=== PATIENT | male | born 1955 | race Caucasian/White ===

== ENCOUNTER 2020-10-02 08:43 | Inpatient (IN) ==
[2020-10-02 10:02] LABS: Basophils % 0.4 % (0.0-0.8); Immature Granulocytes % 8.9 %; Immature Granulocytes Absolute 0.43 #; Lymphocytes # 0.1 10*3/uL (1.4-4.0); Lymphocytes % 2.7 % (21.2-54.2); Mean Corpuscular HGB Conc 32.4 GM/DL (32-36); Mean Corpuscular Volume 96.2 FL (87-102); Mean Platelet Volume 11.8 FL (9.6-12.0); NRBC # 0.46 10*3/uL; Red Blood Count 1.86 MC/CUMM (3.8-5.5); Red Cell Distribution Width 18.6 % (9.3-17.3); White Blood Count 4.8 T/CUMM (4-12)
[2020-10-02 10:05] LABS: Hemoglobin 5.8 GM/DL (14.0-18.0)
[2020-10-02 10:06] LABS: Hematocrit 17.9 VOL% (42.0-52.0); Platelet Count 39 T/CUMM (130-400)
[2020-10-02] MEDS ORDERED: SODIUM CHLORIDE 0.9% 1,000 ML IV PRN (10:16)
[2020-10-02 10:22] LABS: Band Neutrophils 4 % (0-10); Hypochromasia 2+; Lymphocytes 7 % (20-55); Microcytosis 1+; Nucleated Red Blood Cells 6 (0-5); Platelet Estimate Decreased; Segmented Neutrophils 85 % (50-85); Total Cells Counted 100
[2020-10-02 10:24] LABS: Alanine Aminotransferase 20 U/L (16-61); Albumin 2.3 G/DL (3.4-5.0); Alkaline Phosphatase 235 U/L (45-117); Aspartate Amino Transferase 36 U/L (0-37); Blood Urea Nitrogen 20 MG/DL (7-18); Carbon Dioxide 22 MMOL/L (21-32); Estimated Glom Filtration Rate 108 ML/MIN; Glucose 110 MG/DL (74-106); Osmolality,Calculated 271.2 MOS/KG (273-304); Potassium 3.6 MMOL/L (3.5-5.1); Sodium 134 MMOL/L (136-145); Total Protein 5.4 G/DL (6.4-8.3)
[2020-10-02] MEDS ORDERED: SODIUM CHLORIDE 0.9% 2,300 ML IV ONE (10:27)
[2020-10-02 10:43] LABS: Protein,Urine 30 MG/DL; Urine Appearance Cloudy (Clear); Urine Color Yellow (Yellow)
[2020-10-02 10:44] LABS: Bilirubin,Urine Negative (Negative); Blood, Urine Trace mg/dL (Negative); Glucose,Urine (UA) Negative (Negative); Ketones,Urine Negative (Negative); Nitrite,Urine Positive (Negative); Squamous Epithelial Cell,Urine Few /HPF (0-10)
[2020-10-02 10:45] LABS: Bacteria,Urine Moderate /HPF (Few); Mucus,Urine Slight /LPF (Occasional)
[2020-10-02] MEDS ORDERED: PIPERACILLIN/TAZOBACTAM 3,375 MG VIAL IV ONE (11:18)
[2020-10-02] MEDS: PIPERACILLIN/TAZOBACTAM 3,375 MG in SODIUM CHLORIDE 0.9% 100 ML IV SCH ×2 (11:35→23:07)
[2020-10-02] MEDS ORDERED: ONDANSETRON 4 MG/2 ML VIAL IV PRN (13:00)
[2020-10-02] MEDS ORDERED: DEXTROSE 50% 25 GM/50 ML VIAL IV PRN (13:00)
[2020-10-02] MEDS ORDERED: GLUCAGON 1 MG VIAL IM PRN (13:00)
[2020-10-02 13:44] LABS: Thyroid Stimulating Hormone 3.07 uIU/ml (0.358-3.74)
[2020-10-02] MEDS: VANCOMYCIN INJ 1,250 MG in SODIUM CHLORIDE 0.9% 250 ML IV SCH (14:05)
[2020-10-02] MEDS: methylPREDNISolone SOD SUC 40 MG/1 ML VIAL IV SCH (16:53)
[2020-10-02] MEDS: PANTOPRAZOLE 40 MG VIAL IV SCH (23:07)
[2020-10-03] MEDS: VANCOMYCIN INJ 1,250 MG in SODIUM CHLORIDE 0.9% 250 ML IV SCH ×2 (03:35→16:46)
[2020-10-03] MEDS: methylPREDNISolone SOD SUC 40 MG/1 ML VIAL IV SCH ×2 (04:09→17:05)
[2020-10-03 06:10] LABS: Basophils % 0.4 % (0.0-0.8); Hemoglobin 6.6 GM/DL (14.0-18.0); Immature Granulocytes % 10.2 %; Immature Granulocytes Absolute 0.54 #; Lymphocytes # 0.3 10*3/uL (1.4-4.0); Lymphocytes % 5.9 % (21.2-54.2); Mean Corpuscular HGB Conc 31.4 GM/DL (32-36); Mean Corpuscular Volume 98.1 FL (87-102); Mean Platelet Volume 11.8 FL (9.6-12.0); Monocytes % 9.5 % (1.7-12.7); NRBC # 0.25 10*3/uL; Platelet Count 61 T/CUMM (130-400); Red Blood Count 2.14 MC/CUMM (3.8-5.5); Red Cell Distribution Width 18.3 % (9.3-17.3); White Blood Count 5.3 T/CUMM (4-12)
[2020-10-03 06:27] LABS: Calcium 7.7 MG/DL (8.5-10.1); Osmolality,Calculated 276.8 MOS/KG (273-304)
[2020-10-03 07:14] LABS: Band Neutrophils 9 % (0-10); Eosinophils 1 % (0-10); Hypochromasia 2+; Lymphocytes 7 % (20-55); Metamyelocytes 6 %; Myelocytes 3 %; Platelet Estimate Decreased; Segmented Neutrophils 64 % (50-85); Total Cells Counted 100
[2020-10-03] MEDS ORDERED: SODIUM CHLORIDE 0.9% 1,000 ML IV PRN (08:17)
[2020-10-03] MEDS ORDERED: MAGNESIUM SULF RIDER 2 GM in PREMIX 1 EACH IV PRN (08:21)
[2020-10-03] MEDS ORDERED: MAGNESIUM SULF RIDER 4 GM in PREMIX 1 EACH IV PRN (08:21)
[2020-10-03] MEDS: PANTOPRAZOLE 40 MG VIAL IV SCH ×2 (10:19→20:13)
[2020-10-03] MEDS: PIPERACILLIN/TAZOBACTAM 3,375 MG in SODIUM CHLORIDE 0.9% 100 ML IV SCH ×3 (10:21→15:37)
[2020-10-03 18:56] LABS: Hematocrit 25.7 VOL% (42.0-52.0); Hemoglobin 8.5 GM/DL (14.0-18.0)
[2020-10-04 01:08] LABS: Hemoglobin 9.1 GM/DL (14.0-18.0)
[2020-10-04] MEDS: methylPREDNISolone SOD SUC 40 MG/1 ML VIAL IV SCH (04:22)
[2020-10-04] MEDS: VANCOMYCIN INJ 1,250 MG in SODIUM CHLORIDE 0.9% 250 ML IV SCH (04:24)
[2020-10-04] MEDS ORDERED: SODIUM CHLORIDE 0.9% 1,000 ML IV SCH (07:03)
[2020-10-04] MEDS ORDERED: LIDOCAINE 2% 5 ML VIAL ONE (07:13)
[2020-10-04] MEDS ORDERED: propofoL 200 MG/20 ML VIAL IV ONE (07:13)
[2020-10-04 08:47] LABS: Basophils # 0.1 10*3/uL (0.0-0.2); Basophils % 0.5 % (0.0-0.8); Hematocrit 29.5 VOL% (42.0-52.0); Hemoglobin 9.6 GM/DL (14.0-18.0); Immature Granulocytes % 6.8 %; Immature Granulocytes Absolute 0.64 #; Lymphocytes # 0.1 10*3/uL (1.4-4.0); Mean Corpuscular HGB Conc 32.5 GM/DL (32-36); Mean Corpuscular Volume 94.2 FL (87-102); Mean Platelet Volume 11.2 FL (9.6-12.0); Monocytes % 12.1 % (1.7-12.7); NRBC # 0.68 10*3/uL; Neutrophils % 79.6 % (38.7-73.9); Platelet Count 55 T/CUMM (130-400); Red Blood Count 3.13 MC/CUMM (3.8-5.5); Red Cell Distribution Width 18.9 % (9.3-17.3); White Blood Count 9.5 T/CUMM (4-12)
[2020-10-04 09:07] LABS: Band Neutrophils 24 % (0-10); Eosinophils 1 % (0-10); Metamyelocytes 2 %; Nucleated Red Blood Cells 14 (0-5); Platelet Estimate Decreased; Segmented Neutrophils 60 % (50-85); Total Cells Counted 100
[2020-10-04 09:08] LABS: Anisocytosis 2+; Macrocytosis 1+; Polychromasia Slight
[2020-10-04] MEDS: PANTOPRAZOLE 40 MG VIAL IV SCH (10:15)
[2020-10-04] MEDS: PIPERACILLIN/TAZOBACTAM 3,375 MG in SODIUM CHLORIDE 0.9% 100 ML IV SCH ×2 (10:15)
[2020-10-04 15:29] VITALS: BP 107/71
== END 2020-10-04 17:31 | disposition home or self-care (01) | DRG 375 ==
LOC: N.ED 08:43 → N.EDINP 11:15 → SUATTDRO 11:15 → N.4E 16:15
PROVIDERS: ADMIT Emergency Medicine; ATTEND Internal Medicine

== ENCOUNTER 2020-11-04 07:37 | Inpatient (IN) ==
[2020-11-04] MEDS ORDERED: ACETAMINOPHEN 500 MG TABLET PO STA (08:07)
[2020-11-04] MEDS ORDERED: SODIUM CHLORIDE 0.9% 1,000 ML IV STA (08:07)
[2020-11-04 08:49] LABS: Basophils % 0.4 % (0.0-0.8); Hematocrit 22.5 VOL% (42.0-52.0); Hemoglobin 7.2 GM/DL (14.0-18.0); Lymphocytes # 1.2 10*3/uL (1.4-4.0); Lymphocytes % 14.5 % (21.2-54.2); Mean Corpuscular Volume 102.7 FL (87-102); NRBC # 0.12 10*3/uL; Neutrophils % 70.1 % (38.7-73.9); Red Blood Count 2.19 MC/CUMM (3.8-5.5); Red Cell Distribution Width 23.8 % (9.3-17.3); White Blood Count 8.4 T/CUMM (4-12)
[2020-11-04 08:53] LABS: Platelet Count 14 T/CUMM (130-400)
[2020-11-04 09:07] LABS: Bilirubin,Urine Negative (Negative); Blood, Urine Small mg/dL (Negative); Glucose,Urine (UA) Negative (Negative); Ketones,Urine Negative (Negative); Mucus,Urine Many /LPF (Occasional); Nitrite,Urine Negative (Negative); Protein,Urine 100 MG/DL; RBC,Urine 4 /HPF (0-4); Squamous Epithelial Cell,Urine Occasional /HPF (0-10); Urine Appearance CLEAR (Clear); Urine Color Amber (Yellow); Urine Specific Gravity 1.021 (1.001-1.035); WBC,Urine 1 /HPF (0-6)
[2020-11-04 09:10] LABS: Albumin 2.2 G/DL (3.4-5.0); Bilirubin,Total 1.3 MG/DL (0.2-1.0); Calcium 8.3 MG/DL (8.5-10.1); Osmolality,Calculated 272.8 MOS/KG (273-304); Potassium 3.4 MMOL/L (3.5-5.1); Total Protein 6.4 G/DL (5.0-7.5)
[2020-11-04 09:33] LABS: Band Neutrophils 12 % (0-10); Lymphocytes 13 % (20-55); Nucleated Red Blood Cells 1 (0-5); Segmented Neutrophils 56 % (50-85); Total Cells Counted 100
[2020-11-04 09:34] LABS: Hypochromasia 2+; Polychromasia 1+
[2020-11-04 09:35] LABS: Macrocytosis 2+
[2020-11-04 09:36] LABS: Atypical Lymphocytes Few; Platelet Estimate Decreased
[2020-11-04] MEDS ORDERED: DOCUSATE SODIUM 100 MG CAPSULE PO PRN (11:59)
[2020-11-04] MEDS ORDERED: hydrALAZINE 20 MG/1 ML VIAL IV PRN (11:59)
[2020-11-04] MEDS ORDERED: ACETAMINOPHEN 325 MG TABLET PO PRN (11:59)
[2020-11-04] MEDS ORDERED: DEXTROSE 50% 25 GM/50 ML VIAL IV PRN ×2 (11:59→14:44)
[2020-11-04] MEDS ORDERED: GLUCAGON 1 MG VIAL IM PRN (11:59)
[2020-11-04] MEDS ORDERED: ONDANSETRON 4 MG/2 ML VIAL IV PRN (11:59)
[2020-11-04] MEDS ORDERED: guaiFENesin/DM ER 600-30 MG TABLET PO PRN (11:59)
[2020-11-04] MEDS ORDERED: SODIUM CHLORIDE 0.9% 1,000 ML IV PRN ×2 (12:03→17:22)
[2020-11-04] MEDS: SODIUM CHLORIDE 0.9% 1,000 ML IV SCH (14:10)
[2020-11-04] MEDS: MEROPENEM 500 MG in SODIUM CHLORIDE 0.9% 100 ML IV SCH ×2 (14:14→21:25)
[2020-11-04] MEDS ORDERED: MAGNESIUM SULF RIDER 4 GM in PREMIX 1 EACH IV PRN (14:29)
[2020-11-04] MEDS ORDERED: MAGNESIUM SULF RIDER 2 GM in PREMIX 1 EACH IV PRN (14:29)
[2020-11-04] MEDS: INSULIN REGULAR 100 UNIT/ML SUBCUT SCH (16:16)
[2020-11-04] MEDS ORDERED: MAGNESIUM SULF RIDER 2 GM in PREMIX 1 EACH IV ONE (17:19)
[2020-11-04] MEDS ORDERED: POTASSIUM CHLORIDE 20 MEQ TABLET PO ONE (17:20)
[2020-11-04] MEDS ORDERED: VANCOMYCIN INJ 1,000 MG in SODIUM CHLORIDE 0.9% 250 ML IV ONE (17:25)
[2020-11-04 18:11] LABS: PT Patient Result 11.1 SECS (9.8-11.9)
[2020-11-04] MEDS: SIMVASTATIN 10 MG TABLET PO SCH (21:24)
[2020-11-04] MEDS: PANTOPRAZOLE 40 MG TABLET PO SCH (21:24)
[2020-11-04] MEDS: GABAPENTIN 300 MG CAPSULE PO SCH (21:24)
[2020-11-05] MEDS: MEROPENEM 500 MG in SODIUM CHLORIDE 0.9% 100 ML IV SCH ×4 (03:27→21:21)
[2020-11-05 05:43] LABS: Basophils % 0.3 % (0.0-0.8); Hematocrit 19.8 VOL% (42.0-52.0); Immature Granulocytes % 4.5 %; Immature Granulocytes Absolute 0.28 #; Lymphocytes # 0.7 10*3/uL (1.4-4.0); Lymphocytes % 10.9 % (21.2-54.2); Mean Corpuscular HGB Conc 31.8 GM/DL (32-36); Mean Corpuscular Volume 105.3 FL (87-102); Mean Platelet Volume 11.3 FL (9.6-12.0); Monocytes % 12.2 % (1.7-12.7); NRBC # 0.09 10*3/uL; Neutrophils % 72.1 % (38.7-73.9); Platelet Count 43 T/CUMM (130-400); Red Blood Count 1.88 MC/CUMM (3.8-5.5); White Blood Count 6.2 T/CUMM (4-12)
[2020-11-05 05:56] LABS: Hemoglobin 6.3 GM/DL (14.0-18.0)
[2020-11-05 06:03] LABS: Calcium 7.6 MG/DL (8.5-10.1); Potassium 3.4 MMOL/L (3.5-5.1)
[2020-11-05 06:04] LABS: Atypical Lymphocytes Few; Band Neutrophils 1 % (0-10); Lymphocytes 15 % (20-55); Nucleated Red Blood Cells 2 (0-5); Platelet Estimate Decreased; Segmented Neutrophils 68 % (50-85); Total Cells Counted 100
[2020-11-05 06:05] LABS: Hypochromasia 2+; Macrocytosis Slight; Ovalocytes Slight
[2020-11-05] MEDS: INSULIN REGULAR 100 UNIT/ML SUBCUT SCH ×3 (08:29→16:49)
[2020-11-05] MEDS ORDERED: SODIUM CHLORIDE 0.9% 1,000 ML IV PRN (08:29)
[2020-11-05] MEDS: PANTOPRAZOLE 40 MG TABLET PO SCH ×2 (08:33→21:21)
[2020-11-05] MEDS: GABAPENTIN 300 MG CAPSULE PO SCH ×2 (08:33→21:21)
[2020-11-05] MEDS ORDERED: PANTOPRAZOLE 40 MG TABLET PO SCH (09:00)
[2020-11-05] MEDS: SODIUM CHLORIDE 0.9% 1,000 ML IV SCH ×2 (18:08→21:21)
[2020-11-05] MEDS ORDERED: POTASSIUM CHLORIDE 20 MEQ/15 ML UDCUP PO ONE (18:32)
[2020-11-05] MEDS: SIMVASTATIN 10 MG TABLET PO SCH (21:21)
[2020-11-06] MEDS: MEROPENEM 500 MG in SODIUM CHLORIDE 0.9% 100 ML IV SCH ×2 (03:53→08:23)
[2020-11-06 05:45] LABS: Basophils % 0.5 % (0.0-0.8); Eosinophils % 0.2 % (0.00-10.9); Hematocrit 26.3 VOL% (42.0-52.0); Immature Granulocytes % 4.6 %; Lymphocytes # 0.6 10*3/uL (1.4-4.0); Lymphocytes % 9.9 % (21.2-54.2); Mean Corpuscular HGB Conc 32.7 GM/DL (32-36); Mean Corpuscular Volume 99.2 FL (87-102); Monocytes % 11.1 % (1.7-12.7); NRBC # 0.12 10*3/uL; Neutrophils % 73.7 % (38.7-73.9); Red Cell Distribution Width 21.6 % (9.3-17.3); White Blood Count 6.5 T/CUMM (4-12)
[2020-11-06 05:46] LABS: Hemoglobin 8.6 GM/DL (14.0-18.0); Red Blood Count 2.65 MC/CUMM (3.8-5.5)
[2020-11-06 05:48] LABS: Platelet Count 27 T/CUMM (130-400)
[2020-11-06 06:07] LABS: Band Neutrophils 2 % (0-10); Lymphocytes 6 % (20-55); Nucleated Red Blood Cells 2 (0-5); Platelet Estimate Decreased; Segmented Neutrophils 80 % (50-85); Total Cells Counted 100
[2020-11-06 06:08] LABS: Atypical Lymphocytes Few; Hypochromasia 1+; Macrocytosis Slight; Ovalocytes Slight; Polychromasia Slight
[2020-11-06 06:09] LABS: Calcium 8.4 MG/DL (8.5-10.1); Osmolality,Calculated 267.1 MOS/KG (273-304); Potassium 3.6 MMOL/L (3.5-5.1)
[2020-11-06] MEDS: INSULIN REGULAR 100 UNIT/ML SUBCUT SCH ×2 (07:48→13:08)
[2020-11-06] MEDS: GABAPENTIN 300 MG CAPSULE PO SCH (08:22)
[2020-11-06] MEDS: PANTOPRAZOLE 40 MG TABLET PO SCH (08:23)
[2020-11-06 12:33] VITALS: BP 112/73
[2020-11-06] MEDS ORDERED: HEPARIN LOCK FLUSH 500 UNIT/5 ML SYRINGE IV ONE (13:52)
[2020-11-06] MEDS ORDERED: AMOXICILLIN/CLAV 500 MG TABLET PO SCH (21:00)
== END 2020-11-06 14:37 | disposition home or self-care (01) | DRG 813 ==
LOC: N.ED 07:37 → N.EDINP 11:41 → N.4E 12:56
PROVIDERS: ADMIT Internal Medicine; ATTEND Internal Medicine

== ENCOUNTER 2020-12-02 10:11 | Inpatient (IN) ==
[2020-12-02] MEDS ORDERED: ONDANSETRON 4 MG/2 ML VIAL IV STA (11:24)
[2020-12-02] MEDS ORDERED: SODIUM CHLORIDE 0.9% 1,000 ML IV STA (11:24)
[2020-12-02 11:31] LABS: Basophils % 0.2 % (0.0-0.8); Hematocrit 20.6 VOL% (42.0-52.0); Hemoglobin 6.7 GM/DL (14.0-18.0); Immature Granulocytes % 6.2 %; Immature Granulocytes Absolute 0.79 #; Lymphocytes # 1.1 10*3/uL (1.4-4.0); Lymphocytes % 8.2 % (21.2-54.2); Mean Corpuscular HGB Conc 32.5 GM/DL (32-36); Mean Corpuscular Volume 107.9 FL (87-102); Monocytes % 17.9 % (1.7-12.7); NRBC # 0.73 10*3/uL; Neutrophils % 67.5 % (38.7-73.9); Red Blood Count 1.91 MC/CUMM (3.8-5.5); Red Cell Distribution Width 24.8 % (9.3-17.3); White Blood Count 12.8 T/CUMM (4-12)
[2020-12-02 11:37] LABS: Platelet Count 13 T/CUMM (130-400)
[2020-12-02 11:46] LABS: Albumin 2.1 G/DL (3.4-5.0); Bilirubin,Total 1.2 MG/DL (0.2-1.0); Osmolality,Calculated 268.4 MOS/KG (273-304); Potassium 4.3 MMOL/L (3.5-5.1); Total Protein 5.9 G/DL (6.4-8.2)
[2020-12-02 11:49] LABS: Calcium 8.5 MG/DL (8.5-10.1)
[2020-12-02 11:51] LABS: Atypical Lymphocytes Few; Band Neutrophils 2 % (0-10); Hypochromasia 2+; Lymphocytes 7 % (20-55); Microcytosis 1+; Nucleated Red Blood Cells 2 (0-5); Platelet Estimate Decreased; Segmented Neutrophils 76 % (50-85); Total Cells Counted 100
[2020-12-02] MEDS ORDERED: SODIUM CHLORIDE 0.9% 1,000 ML IV PRN (12:01)
[2020-12-02] MEDS ORDERED: guaiFENesin/DM ER 600-30 MG TABLET PO PRN (14:41)
[2020-12-02] MEDS ORDERED: GLUCAGON 1 MG VIAL IM PRN (14:41)
[2020-12-02] MEDS ORDERED: DEXTROSE 50% 25 GM/50 ML VIAL IV PRN (14:41)
[2020-12-02 16:19] LABS: INR 1.1; PT Patient Result 11.4 SECS (9.8-11.9); Partial Thromboplastin Time 29.6 SECS (23.9-33.8)
[2020-12-02] MEDS: INSULIN LISPRO 100 UNIT/ML SUBCUT SCH ×2 (18:21→21:49)
[2020-12-02] MEDS: SODIUM CHLORIDE 0.9% 1,000 ML IV SCH (18:50)
[2020-12-02] MEDS: PANTOPRAZOLE 40 MG VIAL IV SCH (21:56)
[2020-12-03] MEDS: SODIUM CHLORIDE 0.9% 1,000 ML IV SCH ×2 (04:32→14:33)
[2020-12-03 05:41] LABS: Basophils % 0.4 % (0.0-0.8); Immature Granulocytes % 5.8 %; Immature Granulocytes Absolute 0.66 #; Lymphocytes # 0.9 10*3/uL (1.4-4.0); Mean Corpuscular HGB Conc 33.3 GM/DL (32-36); Mean Corpuscular Volume 99.5 FL (87-102); Mean Platelet Volume 10.1 FL (9.6-12.0); Monocytes % 18.3 % (1.7-12.7); NRBC # 0.77 10*3/uL; Neutrophils % 67.5 % (38.7-73.9); Platelet Count 61 T/CUMM (130-400); Red Blood Count 2.11 MC/CUMM (3.8-5.5); Red Cell Distribution Width 24.5 % (9.3-17.3); White Blood Count 11.4 T/CUMM (4-12)
[2020-12-03 06:01] LABS: Bilirubin,Total 2.3 MG/DL (0.2-1.0); Calcium 8.4 MG/DL (8.5-10.1); Osmolality,Calculated 263.5 MOS/KG (273-304); Potassium 3.8 MMOL/L (3.5-5.1); Total Protein 5.5 G/DL (6.4-8.2)
[2020-12-03 06:19] LABS: Anisocytosis 2+; Atypical Lymphocytes Few; Band Neutrophils 3 % (0-10); Hypochromasia 2+; Lymphocytes 6 % (20-55); Macrocytosis 2+; Metamyelocytes 2 %; Myelocytes 1 %; Nucleated Red Blood Cells 13 (0-5); Platelet Estimate Decreased; Polychromasia 2+; Promyelocytes 3 %; Segmented Neutrophils 65 % (50-85); Total Cells Counted 101
[2020-12-03] MEDS: INSULIN LISPRO 100 UNIT/ML SUBCUT SCH ×4 (07:33→21:32)
[2020-12-03] MEDS ORDERED: ONDANSETRON 4 MG/2 ML VIAL IV PRN (07:36)
[2020-12-03] MEDS ORDERED: MAGNESIUM SULF RIDER 2 GM in PREMIX 1 EACH IV ONE (08:00)
[2020-12-03] MEDS: PANTOPRAZOLE 40 MG VIAL IV SCH ×2 (08:20→21:34)
[2020-12-03] MEDS: GABAPENTIN 300 MG CAPSULE PO SCH ×2 (08:20→21:33)
[2020-12-03 17:32] LABS: Bilirubin,Urine Negative (Negative); Blood, Urine Negative (Negative); Glucose,Urine (UA) Negative (Negative); Ketones,Urine Negative (Negative); Mucus,Urine Occasional /LPF (Occasional); Nitrite,Urine Negative (Negative); Protein,Urine Negative; RBC,Urine 1 /HPF (0-4); Squamous Epithelial Cell,Urine Occasional /HPF (0-10); Urine Appearance CLEAR (Clear); Urine Color Yellow (Yellow); Urine Specific Gravity 1.011 (1.001-1.035); WBC,Urine 1 /HPF (0-6)
[2020-12-03] MEDS: SIMVASTATIN 10 MG TABLET PO SCH (21:33)
[2020-12-04 05:52] LABS: Basophils % 0.3 % (0.0-0.8); Hematocrit 26.3 VOL% (42.0-52.0); Immature Granulocytes Absolute 0.52 #; Lymphocytes # 0.6 10*3/uL (1.4-4.0); Lymphocytes % 6.1 % (21.2-54.2); Mean Corpuscular HGB Conc 33.5 GM/DL (32-36); Mean Corpuscular Volume 95.3 FL (87-102); Mean Platelet Volume 10.3 FL (9.6-12.0); Monocytes % 17.8 % (1.7-12.7); NRBC # 0.82 10*3/uL; Neutrophils % 70.8 % (38.7-73.9); Red Cell Distribution Width 21.6 % (9.3-17.3); White Blood Count 10.5 T/CUMM (4-12)
[2020-12-04 06:07] LABS: Hemoglobin 8.8 GM/DL (14.0-18.0); Red Blood Count 2.76 MC/CUMM (3.8-5.5)
[2020-12-04 06:08] LABS: Platelet Count 39 T/CUMM (130-400)
[2020-12-04 06:09] LABS: Calcium 8.5 MG/DL (8.5-10.1); Osmolality,Calculated 260.7 MOS/KG (273-304); Potassium 4.1 MMOL/L (3.5-5.1)
[2020-12-04 06:21] LABS: Band Neutrophils 9 % (0-10); Hypochromasia 1+; Lymphocytes 8 % (20-55); Nucleated Red Blood Cells 5 (0-5); Segmented Neutrophils 73 % (50-85); Total Cells Counted 100
[2020-12-04 06:22] LABS: Anisocytosis 1+; Macrocytosis 1+; Polychromasia Few
[2020-12-04 06:23] LABS: Platelet Estimate Decreased
[2020-12-04 06:26] LABS: Atypical Lymphocytes Few
[2020-12-04] MEDS: LACTATED RINGERS 1,000 ML IV SCH (07:00)
[2020-12-04] MEDS ORDERED: LIDOCAINE 2% 5 ML VIAL ONE ×2 (07:38)
[2020-12-04] MEDS ORDERED: propofoL 200 MG/20 ML VIAL IV ONE ×2 (07:38→08:27)
[2020-12-04] MEDS ORDERED: SODIUM CHLORIDE 0.9% 1,000 ML IV PRN (08:08)
[2020-12-04] MEDS: INSULIN LISPRO 100 UNIT/ML SUBCUT SCH ×4 (08:45→20:20)
[2020-12-04] MEDS: PANTOPRAZOLE 40 MG VIAL IV SCH ×2 (08:49→20:23)
[2020-12-04] MEDS: GABAPENTIN 300 MG CAPSULE PO SCH ×2 (08:50→20:23)
[2020-12-04] MEDS: SODIUM CHLORIDE 0.9% 1,000 ML IV SCH ×2 (08:51→20:29)
[2020-12-04] MEDS ORDERED: EPINEPHrine 1 MG/ML VIAL ONE (09:21)
[2020-12-04] MEDS: ACETAMINOPHEN 325 MG TABLET PO PRN (17:14)
[2020-12-04] MEDS: SIMVASTATIN 10 MG TABLET PO SCH (20:23)
[2020-12-05] MEDS: ACETAMINOPHEN 325 MG TABLET PO PRN (05:18)
[2020-12-05 08:30] LABS: Basophils % 0.3 % (0.0-0.8); Hematocrit 25.2 VOL% (42.0-52.0); Hemoglobin 8.4 GM/DL (14.0-18.0); Immature Granulocytes % 5.3 %; Immature Granulocytes Absolute 0.46 #; Lymphocytes # 0.4 10*3/uL (1.4-4.0); Lymphocytes % 4.4 % (21.2-54.2); Mean Corpuscular HGB Conc 33.3 GM/DL (32-36); Mean Corpuscular Volume 96.9 FL (87-102); Mean Platelet Volume 10.3 FL (9.6-12.0); Monocytes % 14.1 % (1.7-12.7); NRBC # 0.65 10*3/uL; Neutrophils % 75.9 % (38.7-73.9); Platelet Count 43 T/CUMM (130-400); Red Cell Distribution Width 21.9 % (9.3-17.3); White Blood Count 8.6 T/CUMM (4-12)
[2020-12-05 08:52] LABS: Anisocytosis 2+; Atypical Lymphocytes Few; Band Neutrophils 21 % (0-10); Lymphocytes 10 % (20-55); Macrocytosis 1+; Nucleated Red Blood Cells 9 (0-5); Platelet Estimate Decreased; Poikilocytosis Slight; Segmented Neutrophils 67 % (50-85); Total Cells Counted 100
[2020-12-05 09:01] LABS: Albumin 2.2 G/DL (3.4-5.0); Bilirubin,Total 1.6 MG/DL (0.2-1.0); Calcium 8.3 MG/DL (8.5-10.1); Osmolality,Calculated 265.2 MOS/KG (273-304); Potassium 3.6 MMOL/L (3.5-5.1); Total Protein 5.9 G/DL (6.4-8.2)
[2020-12-05] MEDS: GABAPENTIN 300 MG CAPSULE PO SCH (10:11)
[2020-12-05] MEDS: PANTOPRAZOLE 40 MG VIAL IV SCH (10:11)
[2020-12-05] MEDS: INSULIN LISPRO 100 UNIT/ML SUBCUT SCH ×2 (10:16→12:43)
[2020-12-05 11:35] VITALS: BP 103/62
[2020-12-05] MEDS: SODIUM CHLORIDE 0.9% 1,000 ML IV SCH (12:43)
[2020-12-05] MEDS: LACTATED RINGERS 1,000 ML IV SCH (12:43)
== END 2020-12-05 14:40 | disposition home health service (06) | DRG 375 ==
LOC: N.ED 10:11 → N.EDINP 15:51 → N.3E 16:35
PROVIDERS: ADMIT Internal Medicine; ATTEND Internal Medicine

== ENCOUNTER 2020-12-08 11:17 | Inpatient (IN) ==
[2020-12-08 12:06] LABS: Basophils % 0.2 % (0.0-0.8); Immature Granulocytes % 3.4 %; Immature Granulocytes Absolute 0.28 #; Lymphocytes # 0.6 10*3/uL (1.4-4.0); Lymphocytes % 7.6 % (21.2-54.2); Mean Corpuscular HGB Conc 31.8 GM/DL (32-36); Mean Corpuscular Volume 102.8 FL (87-102); Mean Platelet Volume 10.5 FL (9.6-12.0); Monocytes % 12.3 % (1.7-12.7); NRBC # 0.18 10*3/uL; Neutrophils % 76.5 % (38.7-73.9); Red Blood Count 2.14 MC/CUMM (3.8-5.5); Red Cell Distribution Width 21.3 % (9.3-17.3); White Blood Count 8.1 T/CUMM (4-12)
[2020-12-08 12:13] LABS: Platelet Count 14 T/CUMM (130-400)
[2020-12-08 12:29] LABS: Band Neutrophils 32 % (0-10); Lymphocytes 13 % (20-55); Nucleated Red Blood Cells 4 (0-5); Platelet Estimate Decreased; Segmented Neutrophils 48 % (50-85); Total Cells Counted 100
[2020-12-08 12:30] LABS: Anisocytosis 2+
[2020-12-08 12:31] LABS: Calcium 7.5 MG/DL (8.5-10.1); Osmolality,Calculated 270.1 MOS/KG (273-304); Potassium 4.5 MMOL/L (3.5-5.1)
[2020-12-08 12:32] LABS: Tear Drop Cells Few
[2020-12-08] MEDS ORDERED: SODIUM CHLORIDE 0.9% 500 ML IV STA (12:56)
[2020-12-08] MEDS ORDERED: ONDANSETRON 4 MG/2 ML VIAL IV PRN (14:19)
[2020-12-08] MEDS ORDERED: DEXTROSE 50% 25 GM/50 ML VIAL IV PRN (14:19)
[2020-12-08] MEDS ORDERED: MORPHINE 4 MG/1 ML VIAL IV PRN (14:19)
[2020-12-08] MEDS ORDERED: GLUCAGON 1 MG VIAL IM PRN (14:19)
[2020-12-08] MEDS ORDERED: SODIUM CHLORIDE 0.9% 1,000 ML IV PRN ×2 (14:25→21:48)
[2020-12-08] MEDS ORDERED: SODIUM CHLORIDE 0.9% 500 ML IV ONE (14:33)
[2020-12-08 16:28] LABS: Hematocrit 18.9 VOL% (42.0-52.0)
[2020-12-08] MEDS: PANTOPRAZOLE 40 MG VIAL IV SCH (16:51)
[2020-12-08] MEDS: SODIUM CHLORIDE 0.9% 1,000 ML IV SCH (16:52)
[2020-12-08 20:08] LABS: Hematocrit 21.3 VOL% (42.0-52.0); Hemoglobin 6.6 GM/DL (14.0-18.0)
[2020-12-08] MEDS ORDERED: PROMETHAZINE 25 MG/1 ML VIAL IM PRN (20:18)
[2020-12-09 00:53] LABS: Hematocrit 19.3 VOL% (42.0-52.0)
[2020-12-09 00:54] LABS: Hemoglobin 6.2 GM/DL (14.0-18.0)
[2020-12-09] MEDS: SODIUM CHLORIDE 0.9% 1,000 ML IV SCH ×3 (06:15→23:59)
[2020-12-09 07:38] LABS: Basophils % 0.3 % (0.0-0.8); Hematocrit 19.6 VOL% (42.0-52.0); Hemoglobin 6.5 GM/DL (14.0-18.0); Immature Granulocytes % 4.6 %; Immature Granulocytes Absolute 0.33 #; Lymphocytes # 0.9 10*3/uL (1.4-4.0); Lymphocytes % 12.3 % (21.2-54.2); Mean Corpuscular HGB Conc 33.2 GM/DL (32-36); Mean Platelet Volume 9.2 FL (9.6-12.0); Monocytes % 14.2 % (1.7-12.7); NRBC # 0.15 10*3/uL; Neutrophils % 68.6 % (38.7-73.9); Platelet Count 43 T/CUMM (130-400); Red Blood Count 2.02 MC/CUMM (3.8-5.5); Red Cell Distribution Width 19.7 % (9.3-17.3); White Blood Count 7.2 T/CUMM (4-12)
[2020-12-09 07:48] LABS: Calcium 7.8 MG/DL (8.5-10.1); Osmolality,Calculated 275.1 MOS/KG (273-304); Potassium 4.3 MMOL/L (3.5-5.1)
[2020-12-09 07:57] LABS: Band Neutrophils 6 % (0-10); Lymphocytes 9 % (20-55); Nucleated Red Blood Cells 5 (0-5); Segmented Neutrophils 77 % (50-85); Total Cells Counted 100
[2020-12-09 07:58] LABS: Platelet Estimate Decreased
[2020-12-09 07:59] LABS: Hypochromasia 2+; Microcytosis 1+; Ovalocytes Slight
[2020-12-09] MEDS: PANTOPRAZOLE 40 MG VIAL IV SCH (09:05)
[2020-12-09 09:51] LABS: % Iron Saturation 23.1 % (18-50); Ferritin 164.2 ng/ml (26-388)
[2020-12-09] MEDS ORDERED: MAGNESIUM SULF RIDER 2 GM in PREMIX 1 EACH IV PRN (11:16)
[2020-12-09] MEDS ORDERED: MAGNESIUM SULF RIDER 4 GM in PREMIX 1 EACH IV PRN (11:16)
[2020-12-09] MEDS ORDERED: LORazepam 0.5 MG TABLET PO ONE (12:18)
[2020-12-09] MEDS ORDERED: chlorproMAZINE 25 MG TABLET PO PRN (13:52)
[2020-12-09] MEDS ORDERED: LACTULOSE 20 GM/30 ML UDCUP PO PRN (13:52)
[2020-12-09] MEDS ORDERED: traMADol 50 MG TABLET PO PRN (13:52)
[2020-12-09] MEDS ORDERED: TEMAZEPAM 7.5 MG CAPSULE PO PRN (13:52)
[2020-12-09] MEDS ORDERED: ACETAMINOPHEN 325 MG TABLET PO PRN (13:52)
[2020-12-09] MEDS ORDERED: MYLANTA/LIDO VISC 2:1 300 ML BOTTLE SWISH/SPIT PRN (13:52)
[2020-12-09] MEDS ORDERED: LOPERAMIDE 2 MG CAPSULE PO PRN ×2 (13:52)
[2020-12-09] MEDS ORDERED: ALUMINUM/MAGNES/SIMETH MAX STR 30 ML UDCUP PO PRN (13:52)
[2020-12-09] MEDS ORDERED: guaiFENesin 200 MG/10 ML UDCUP PO PRN (13:52)
[2020-12-09] MEDS ORDERED: ONDANSETRON 4 MG/2 ML VIAL IV PRN (13:52)
[2020-12-09] MEDS ORDERED: MAGNESIUM HYDROXIDE SUSP 30 ML UDCUP PO PRN (13:52)
[2020-12-09] MEDS ORDERED: diphenhydrAMINE CAP 25 MG CAPSULE PO PRN (13:52)
[2020-12-09] MEDS ORDERED: PROMETHAZINE INJ 25 MG in SODIUM CHLORIDE 0.9% 50 ML IV PRN (13:52)
[2020-12-09] MEDS ORDERED: ALPRAZolam 0.25 MG TABLET PO PRN (13:52)
[2020-12-09] MEDS ORDERED: MYLANTA/LIDO VISC 2:1 300 ML BOTTLE SWISH/SWAL PRN (13:52)
[2020-12-09 17:20] LABS: Hematocrit 21.4 VOL% (42.0-52.0)
[2020-12-10 07:28] LABS: Basophils % 0.2 % (0.0-0.8); Hematocrit 25.3 VOL% (42.0-52.0); Hemoglobin 8.2 GM/DL (14.0-18.0); Immature Granulocytes % 2.3 %; Immature Granulocytes Absolute 0.14 #; Lymphocytes # 0.6 10*3/uL (1.4-4.0); Lymphocytes % 10.1 % (21.2-54.2); Mean Corpuscular HGB Conc 32.4 GM/DL (32-36); Mean Corpuscular Volume 96.6 FL (87-102); Mean Platelet Volume 9.6 FL (9.6-12.0); Monocytes % 15.4 % (1.7-12.7); NRBC # 0.22 10*3/uL; Red Blood Count 2.62 MC/CUMM (3.8-5.5); Red Cell Distribution Width 20.3 % (9.3-17.3); White Blood Count 6.1 T/CUMM (4-12)
[2020-12-10 07:43] LABS: Osmolality,Calculated 270.2 MOS/KG (273-304); Potassium 3.6 MMOL/L (3.5-5.1)
[2020-12-10 07:48] LABS: Hemoglobin 8.8 GM/DL (14.0-18.0)
[2020-12-10 07:50] LABS: Platelet Count 26 T/CUMM (130-400)
[2020-12-10 08:19] LABS: Band Neutrophils 2 % (0-10); Lymphocytes 13 % (20-55); Nucleated Red Blood Cells 1 (0-5); Platelet Estimate Decreased; Segmented Neutrophils 72 % (50-85); Total Cells Counted 100
[2020-12-10 08:20] LABS: Atypical Lymphocytes Few; Hypochromasia 1+
[2020-12-10 08:21] LABS: Macrocytosis Slight; Microcytosis Slight; Polychromasia Slight
[2020-12-10] MEDS: PANTOPRAZOLE 40 MG VIAL IV SCH (08:27)
[2020-12-10 11:48] VITALS: BP 119/71
== END 2020-12-10 16:00 | disposition hospice, home (50) | DRG 375 ==
LOC: EDUNIT# → EDBD → N.ED 11:17 → N.EDINP 14:19 → SUATTDRO 14:19 → N.EDINP 15:29 → N.4E 15:48
PROVIDERS: ADMIT Emergency Medicine; ATTEND Family Medicine